=== PATIENT | female | born 1990 | race Caucasian/White ===

== ENCOUNTER 2016-07-24 18:15 | Emergency (ER) | payer OTHER ==
[~2016-07-24] VITALS: Ht 172.7 cm; Wt 72.5 kg
[~2016-07-24 18:15] MED LIST: A; ALAVERT10 M1 PO; ANAPROX DS550 M1 PO; BUTALB-APAP-CA1 EACH PO; BUTALBITAL-APA1 EACH PO; CARBAMAZEPINE200 MG PO; CIPRO500 MG PO; CLARITIN10 M3 PO; CLINDAMYCIN HC300 MG PO; COMPAZINE5 MG; CRANBERRY300 MG PO; DILAUDID2 MG PO; ENDOCET 5-3251 EACH PO; EXCEDRIN MIGRA1 EAC3 PO; FIORICET 50-301 EACH PO; FLEXERIL10 MG PO; FLOMAX0.4 MG PO; Flintstones PO; GEODON40 MG PO; HYDROCODON-ACE1 EAC7 PO; HYDROXYZINE HCL25 MG PO; IMITREX50 MG PO; KLONOPIN0.5 M1 PO; KYTRIL1 MG PO; LAMICTAL XR300 MG PO; LAMICTAL200 MG PO; LAMICTAL25 MG PO; LATUDA20 MG PO; LEVAQUIN250 MG PO; LORATADINE10 M2 PO; LYRICA75 MG PO; MINIPRESS2 MG PO; MIRALAX17 GM PO; MOBIC15 MG PO; MOTRIN600 MG PO; MOTRIN800 MG PO; Motrin PO; NAPROSYN500 MG PO; NAPROXEN500 MG PO; NEURONTIN300 MG PO; NEURONTIN400 MG PO; NORCO 5/3251 TABLET PO; PANTOPRAZOLE SO40 MG PO; PAXIL20 MG PO; PERCOCET 5/31 TABLET PO; PRAZOSIN HCL1 MG PO; PROTONIX40 MG PO; SAVELLA12.5 MG PO; SERTRALINE HCL100 MG PO; SYNTHROID125 MCG PO; TIZANIDINE HCL2 MG PO; TOPAMAX50 MG PO; TRAMADOL HCL50 MG PO; TRANSDERM-SCO1 PATCH TD; TUMS500 MG PO; ULTRAM50 MG PO; VICODIN 5-3001 EACH PO; VICODIN,LORT1 TABLET PO; VITAMIN D-32000 UNI2 PO; ZIPRASIDONE HCL60 MG PO; ZOLOFT25 MG PO; ~No Medications
[2016-07-24] MEDS ORDERED: SENNA8.6 MG PO (19:02)
[2016-07-24] MEDS ORDERED: AMMONIUM LACTA224 GM TP (19:03)
[2016-07-24] MEDS ORDERED: MULTIPLE VITAM1 EAC4 PO (19:04)
[2016-07-24] MEDS ORDERED: SAPHRIS10 MG SL (19:05)
[2016-07-24] MEDS ORDERED: LAMISIL AT12 GM TP (19:06)
[2016-07-24 19:16] LABS: HEMATOCRIT 38.5 % (36.0-46.0); MCH 30.3 PG (29.0-34.0); MCHC 35.3 G/DL (30.0-36.0); MCV 85.7 FL (83-99); PLATELET COUNT 316 K/uL (156-360); RBC DIS.WIDTH-CV 12.4 % (11.8-14.6); RBC DIS.WIDTH-SD 37.8 % (39-53); RED BLOOD COUNT 4.49 M/uL (3.80-5.20)
[2016-07-24 19:24] LABS: CHLORIDE 109 mEq/L (99-109); POTASSIUM 3.9 mEq/L (3.7-5.4); SODIUM 139 mEq/L (136-147)
[2016-07-24 19:26] LABS: GLUCOSE 104 mg/dL (70-99)
[2016-07-24 19:27] LABS: ANION GAP 8 MEQ/L (2-14)
[2016-07-24 19:30] LABS: GFR ESTIMATE (CALCULATED) > 59 mL/min/
[2016-07-24 19:31] LABS: UREA NITROGEN (BUN) 14 mg/dL (9-23)
[2016-07-24 19:38] LABS: TROP-I INTERPRETATION NEGATIVE; TROPONIN-I < 0.01 ng/mL (0.0-0.30)
[2016-07-24 20:51] VITALS: BP 109/67
== END 2016-07-24 20:53 | disposition home or self-care (01) ==
LOC: EME 18:15
PROVIDERS: Emergency Medicine
DX: R07.1 Chest pain on breathing (principal); J45.909 Unspecified asthma, uncomplicated; Z87.442 Personal history of urinary calculi; Z85.850 Personal history of malignant neoplasm of thyroid; Z87.891 Personal history of nicotine dependence
CPT/HCPCS: 71020; 80048; 84484; 85027; 85379; 93005; 99281; 99284

== ENCOUNTER 2016-09-13 22:50 | Emergency (ER) | payer OTHER ==
[~2016-09-13] VITALS: Ht 175.3 cm; Wt 98.1 kg
[~2016-09-13 22:50] MED LIST changes: +AMMONIUM LACTA224 GM TP; +LAMISIL AT12 GM TP; +MULTIPLE VITAM1 EAC4 PO; +SAPHRIS10 MG SL; +SENNA8.6 MG PO
[2016-09-13 23:50] LABS: HEMATOCRIT 41.8 % (36.0-46.0); MCH 29.9 PG (29.0-34.0); MCHC 33.7 G/DL (30.0-36.0); MCV 88.7 FL (83-99); MEAN PLAT.VOLUME 8.9 uM^3 (9.5-12.4); PLATELET COUNT 333 K/uL (156-360); RBC DIS.WIDTH-CV 12.2 % (11.8-14.6); RBC DIS.WIDTH-SD 39.4 % (39-53); RED BLOOD COUNT 4.71 M/uL (3.80-5.20)
[2016-09-13 23:52] LABS: WHITE BLOOD COUNT 6.8 K/uL (4.1-10.2)
[2016-09-14] LABS: CHLORIDE 107 mEq/L (99-109); POTASSIUM 3.9 mEq/L (3.7-5.4); SODIUM 141 mEq/L (136-147)
[2016-09-14 00:02] LABS: GLUCOSE 103 mg/dL (70-99)
[2016-09-14 00:03] LABS: ANION GAP 12 MEQ/L (2-14)
[2016-09-14 00:06] LABS: GFR ESTIMATE (CALCULATED) > 59 mL/min/; UREA NITROGEN (BUN) 12 mg/dL (9-23)
[2016-09-14 00:12] LABS: TROP-I INTERPRETATION NEGATIVE; TROPONIN-I < 0.01 ng/mL (0.0-0.30)
[2016-09-14 01:11] LABS: D-DIMER ELISA 0.31 mg/L FEU (< 0.57)
[2016-09-14 01:31] LABS: QUANTITATIVE HCG < 4.0 MIU/ML
[2016-09-14 02:05] LABS: ADD MIUA? YES; BILIRUBIN NEGATIVE; BLOOD NEGATIVE; COLOR YELLOW ((YELLOW)); GLUCOSE (STRIP) NEGATIVE; KETONES NEGATIVE; LEUKOCYTES NEGATIVE; NITRITE NEGATIVE; PROTEIN (STRIP) 30; SPECIFIC GRAVITY 1.025 (1.000-1.030); UROBILINOGEN 0.2 MG/DL (0.2-1.0)
[2016-09-14] MEDS ORDERED: TRAMADOL HCL50 MG PO (02:10)
[2016-09-14] MEDS ORDERED: PEPCID20 MG PO (02:11)
[2016-09-14 02:18] LABS: BACTERIA RARE /HPF; EPITHELIAL CELLS 1+ /HPF; MUCUS 2+ /LPF; RED BLOOD CELLS 0-5 /HPF (0-5); UCUL ADDED? NO; WHITE BLOOD CELLS 0-5 /HPF (0-5)
[2016-09-14 02:19] VITALS: BP 123/81
== END 2016-09-14 02:21 | disposition home or self-care (01) ==
LOC: EME 22:50
PROVIDERS: Emergency Medicine
DX: R07.9 Chest pain, unspecified (principal); M25.512 Pain in left shoulder; Z87.891 Personal history of nicotine dependence
CPT/HCPCS: 71020; 74177; 80048; 81003; 84484; 84702; 85027; 85379; 93005; 99281; 99284; J1885

== ENCOUNTER 2017-01-04 20:13 | Emergency (ER) | payer OTHER ==
[~2017-01-04] VITALS: Ht 172.7 cm; Wt 100.4 kg
[~2017-01-04 20:13] MED LIST changes: +PEPCID20 MG PO
[2017-01-04 20:36] VITALS: BP 121/70
== END 2017-01-04 22:56 | disposition home or self-care (01) ==
LOC: EME 20:13
PROC: 0HBRXZZ Excision of Toe Nail, External Approach (ICD-10-PCS; principal; 2017-01-04)
DX: L60.0 Ingrowing nail (principal); L03.031 Cellulitis of right toe; E89.0 Postprocedural hypothyroidism; Z87.891 Personal history of nicotine dependence
CPT/HCPCS: 99281; 99284; S0020

== ENCOUNTER 2017-01-24 11:04 | Emergency (ER) | payer OTHER ==
[~2017-01-24] VITALS: Ht 172.7 cm; Wt 101.6 kg
[2017-01-24 12:20] VITALS: BP 115/87
[2017-01-24] MEDS ORDERED: ZITHROMAX500 MG PO (12:35)
== END 2017-01-24 12:30 | disposition home or self-care (01) ==
LOC: EME 11:04
DX: J02.9 Acute pharyngitis, unspecified (principal)
CPT/HCPCS: 87651 90; 99281; 99284

== ENCOUNTER 2017-02-08 09:37 | Emergency (ER) | payer OTHER ==
[~2017-02-08] VITALS: Ht 172.7 cm; Wt 99.9 kg
[~2017-02-08 09:37] MED LIST changes: +ZITHROMAX500 MG PO
[2017-02-08 10:57] LABS: EOSINOPHIL (%) 0.4 % (0-5); HEMATOCRIT 39.4 % (36.0-46.0); IMMATURE GRANULOCYTE (%) 0.4 % (0.0-0.7); LYMPHOCYTE COUNT 1.1 K/uL (1.0-2.8); MCH 30.1 PG (29.0-34.0); MCV 88.5 FL (83-99); MEAN PLAT.VOLUME 8.9 uM^3 (9.5-12.4); MONOCYTE (%) 5.3 % (3-12); MONOCYTE COUNT 0.6 K/uL (0-0.8); NEUTROPHIL (%) 83.4 % (45-76); PLATELET COUNT 304 K/uL (156-360); RBC DIS.WIDTH-CV 11.9 % (11.8-14.6); RBC DIS.WIDTH-SD 38.1 % (39-53); RED BLOOD COUNT 4.45 M/uL (3.80-5.20); WHITE BLOOD COUNT 10.8 K/uL (4.1-10.2)
[2017-02-08 12:10] LABS: CHLORIDE 107 mEq/L (99-109); POTASSIUM 3.8 mEq/L (3.7-5.4); SODIUM 140 mEq/L (136-147)
[2017-02-08 12:12] LABS: GLUCOSE 102 mg/dL (70-99)
[2017-02-08 12:13] LABS: ANION GAP 11 MEQ/L (2-14)
[2017-02-08 12:14] LABS: TOTAL BILIRUBIN 0.4 mg/dL (0.0-1.0)
[2017-02-08 12:15] LABS: ALKALINE PHOSPHATASE 81 IU/L (3-129)
[2017-02-08 12:16] LABS: GFR ESTIMATE (CALCULATED) > 59 mL/min/
[2017-02-08 12:17] LABS: UREA NITROGEN (BUN) 11 mg/dL (9-23)
[2017-02-08 12:19] LABS: LIPASE 33 U/L (1.0-51.0)
[2017-02-08] MEDS ORDERED: BENTYL20 MG PO (13:28)
[2017-02-08 13:46] VITALS: BP 104/66
== END 2017-02-08 13:49 | disposition home or self-care (01) ==
LOC: EME 09:37
PROVIDERS: Emergency Medicine
DX: R10.9 Unspecified abdominal pain (principal); K58.0 Irritable bowel syndrome with diarrhea; M79.7 Fibromyalgia; J45.909 Unspecified asthma, uncomplicated; Z87.442 Personal history of urinary calculi; Z85.850 Personal history of malignant neoplasm of thyroid
CPT/HCPCS: 80053; 83690; 85025; 99281; 99285; J2270; J7030

== ENCOUNTER 2017-06-21 01:29 | Emergency (ER) | payer OTHER ==
[~2017-06-21] VITALS: Ht 172.7 cm; Wt 91.5 kg
[~2017-06-21 01:29] MED LIST changes: +BENTYL20 MG PO
[2017-06-21 02:34] LABS: HEMATOCRIT 47.3 % (36.0-46.0); HEMOGLOBIN 16.4 G/DL (11.9-15.5); MCH 30.1 PG (29.0-34.0); MCHC 34.7 G/DL (30.0-36.0); MCV 86.8 FL (83-99); PLATELET COUNT 344 K/uL (156-360); RBC DIS.WIDTH-CV 11.9 % (11.8-14.6); RBC DIS.WIDTH-SD 38.3 % (39-53); RED BLOOD COUNT 5.45 M/uL (3.80-5.20); WHITE BLOOD COUNT 15.3 K/uL (4.1-10.2)
[2017-06-21 02:51] LABS: ALBUMIN 4.7 g/dL (3.2-4.8); CHLORIDE 110 mEq/L (99-109); POTASSIUM 3.9 mEq/L (3.7-5.4); SODIUM 142 mEq/L (136-147)
[2017-06-21 02:53] LABS: GLUCOSE 154 mg/dL (70-99); TOTAL PROTEIN 8.3 g/dL (6.4-8.3)
[2017-06-21 02:55] LABS: TOTAL BILIRUBIN 0.6 mg/dL (0.0-1.0)
[2017-06-21 02:57] LABS: ALKALINE PHOSPHATASE 89 IU/L (3-129); GFR ESTIMATE (CALCULATED) > 59 mL/min/
[2017-06-21 02:58] LABS: UREA NITROGEN (BUN) 14 mg/dL (9-23)
[2017-06-21 02:59] LABS: AST (GOT) 21 IU/L (2-34)
[2017-06-21 03:00] LABS: ALT (GPT) 15 IU/L (3-49)
[2017-06-21 03:05] LABS: QUANTITATIVE HCG < 4.0 MIU/ML
[2017-06-21 05:40] LABS: APPEARANCE SL.HAZY ((CLEAR)); BILIRUBIN NEGATIVE; BLOOD NEGATIVE; COLOR AMBER ((YELLOW)); GLUCOSE (STRIP) NEGATIVE; KETONES 20; LEUKOCYTES NEGATIVE; NITRITE NEGATIVE; PROTEIN (STRIP) 100; SPECIFIC GRAVITY 1.028 (1.000-1.030); UROBILINOGEN 0.2 MG/DL (0.2-1.0)
[2017-06-21 06:12] VITALS: BP 100/70
[2017-06-21 06:37] LABS: RED BLOOD CELLS NONE SEEN /HPF (0-5)
[2017-06-21 06:38] LABS: EPITHELIAL CELLS 1+ /HPF; MUCUS 3+ /LPF; WHITE BLOOD CELLS 0-5 /HPF (0-5)
[2017-06-21 06:39] LABS: BACTERIA RARE /HPF; UCUL ADDED? NO
== END 2017-06-21 06:12 | disposition home or self-care (01) ==
LOC: EME 01:29
DX: A08.4 Viral intestinal infection, unspecified (principal); E86.0 Dehydration; Z87.442 Personal history of urinary calculi; Z90.710 Acquired absence of both cervix and uterus; Z90.49 Acquired absence of other specified parts of digestive tract; Z85.850 Personal history of malignant neoplasm of thyroid
CPT/HCPCS: 80053; 81003; 84702; 85027; 93005; 99281; 99285; J1626; J7030

== ENCOUNTER 2017-07-16 11:25 | Emergency (ER) | payer OTHER ==
[~2017-07-16] VITALS: Ht 172.7 cm; Wt 96.9 kg
[2017-07-16 14:03] LABS: BASOPHIL (%) 0.7 % (0-1); EOSINOPHIL (%) 1.5 % (0-5); EOSINOPHIL COUNT 0.1 K/uL (0-0.3); HEMATOCRIT 39.9 % (36.0-46.0); HEMOGLOBIN 13.8 G/DL (11.9-15.5); IMMATURE GRANULOCYTE (%) 0.2 % (0.0-0.7); LYMPHOCYTE (%) 23.7 % (15-42); LYMPHOCYTE COUNT 1.3 K/uL (1.0-2.8); MCH 30.4 PG (29.0-34.0); MCHC 34.6 G/DL (30.0-36.0); MCV 87.9 FL (83-99); MONOCYTE (%) 5.6 % (3-12); MONOCYTE COUNT 0.3 K/uL (0-0.8); NEUTROPHIL (%) 68.3 % (45-76); NEUTROPHIL COUNT 3.7 K/uL (1.8-6.4); PLATELET COUNT 301 K/uL (156-360); RBC DIS.WIDTH-CV 12.6 % (11.8-14.6); RBC DIS.WIDTH-SD 40.6 % (39-53); RED BLOOD COUNT 4.54 M/uL (3.80-5.20); WHITE BLOOD COUNT 5.4 K/uL (4.1-10.2)
[2017-07-16 14:12] LABS: ALBUMIN 4.2 g/dL (3.2-4.8)
[2017-07-16 14:13] LABS: CHLORIDE 109 mEq/L (99-109); POTASSIUM 3.5 mEq/L (3.7-5.4); SODIUM 139 mEq/L (136-147)
[2017-07-16 14:15] LABS: GLUCOSE 92 mg/dL (70-99); TOTAL PROTEIN 7.1 g/dL (6.4-8.3)
[2017-07-16 14:17] LABS: TOTAL BILIRUBIN 0.4 mg/dL (0.0-1.0)
[2017-07-16 14:18] LABS: ALKALINE PHOSPHATASE 78 IU/L (3-129)
[2017-07-16 14:19] LABS: CREATININE 0.8 mg/dL (0.6-1.3); GFR ESTIMATE (CALCULATED) > 59 mL/min/
[2017-07-16 14:20] LABS: AST (GOT) 18 IU/L (2-34); UREA NITROGEN (BUN) 8 mg/dL (9-23)
[2017-07-16 14:22] LABS: ALT (GPT) 17 IU/L (3-49)
[2017-07-16 15:21] LABS: APPEARANCE SL.HAZY ((CLEAR)); BILIRUBIN NEGATIVE; BLOOD NEGATIVE; COLOR YELLOW ((YELLOW)); GLUCOSE (STRIP) NEGATIVE; KETONES 5; LEUKOCYTES NEGATIVE; NITRITE NEGATIVE; PROTEIN (STRIP) NEGATIVE; SPECIFIC GRAVITY 1.023 (1.000-1.030)
[2017-07-16 15:43] LABS: BACTERIA RARE /HPF; EPITHELIAL CELLS RARE /HPF; MUCUS 2+ /LPF; RED BLOOD CELLS 0-5 /HPF (0-5); UCUL ADDED? NO; WHITE BLOOD CELLS 0-5 /HPF (0-5)
[2017-07-16 16:39] VITALS: BP 122/72
[2017-07-18 10:36] LABS: TREPONEMA ANTIBODY POSITIVE (NEGATIVE)
[2017-07-19 17:15] LABS: RPR SCREEN Reactive (Nonreactive); RPR TITER Reactive 1:32 (())
[2017-07-19 17:57] LABS: TREPONEMA PALLIDUM PART AGGL Reactive (Nonreactive)
== END 2017-07-16 16:39 | disposition home or self-care (01) ==
LOC: EME 11:25
PROVIDERS: Emergency Medicine
DX: T76.21XA Adult sexual abuse, suspected, initial encounter (principal); M79.7 Fibromyalgia; J45.909 Unspecified asthma, uncomplicated; K21.9 Gastro-esophageal reflux disease without esophagitis; F41.9 Anxiety disorder, unspecified; F32.9 Major depressive disorder, single episode, unspecified; Z85.850 Personal history of malignant neoplasm of thyroid; Z87.442 Personal history of urinary calculi; Z90.49 Acquired absence of other specified parts of digestive tract; Z88.5 Allergy status to narcotic agent; Z88.2 Allergy status to sulfonamides; Z88.0 Allergy status to penicillin; Z88.1 Allergy status to other antibiotic agents; Z88.6 Allergy status to analgesic agent; Z88.8 Allergy status to other drugs, medicaments and biological substances
CPT/HCPCS: 80053; 81003; 81025; 85025; 86592 90; 86593 90; 86780; 86780 90; 90839; 99281; 99284; G0480

== ENCOUNTER 2017-08-11 14:33 | Day surgery (SDC) | payer OTHER | END 2017-08-11 16:50 | disposition home or self-care (01) | LOC: CATH 14:33 | DX: G97.1 Other reaction to spinal and lumbar puncture (principal); M54.5 Low back pain; Z88.0 Allergy status to penicillin; Z88.2 Allergy status to sulfonamides; Z88.1 Allergy status to other antibiotic agents ==

== ENCOUNTER 2018-02-11 17:33 | Emergency (ER) | payer OTHER ==
[~2018-02-11] VITALS: Ht 172.7 cm; Wt 102.3 kg
[2018-02-11 18:22] LABS: HEMATOCRIT 42.1 % (36.0-46.0); HEMOGLOBIN 14.7 G/DL (11.9-15.5); MCH 30.8 PG (29.0-34.0); MCHC 34.9 G/DL (30.0-36.0); MCV 88.1 FL (83-99); PLATELET COUNT 349 K/uL (156-360); RBC DIS.WIDTH-CV 11.8 % (11.8-14.6); RED BLOOD COUNT 4.78 M/uL (3.80-5.20); WHITE BLOOD COUNT 5.3 K/uL (4.1-10.2)
[2018-02-11 18:25] LABS: APPEARANCE SL.HAZY ((CLEAR)); BILIRUBIN NEGATIVE; BLOOD NEGATIVE; COLOR YELLOW ((YELLOW)); GLUCOSE (STRIP) NEGATIVE; KETONES NEGATIVE; LEUKOCYTES NEGATIVE; NITRITE NEGATIVE; PROTEIN (STRIP) NEGATIVE; UROBILINOGEN 0.2 MG/DL (0.2-1.0)
[2018-02-11 18:30] LABS: BACTERIA RARE /HPF; EPITHELIAL CELLS 2+ /HPF; HYALINE CASTS 0-5 /LPF; MUCUS 2+ /LPF; RED BLOOD CELLS 0-5 /HPF (0-5); WHITE BLOOD CELLS 0-5 /HPF (0-5)
[2018-02-11 18:31] LABS: CHLORIDE 108 mEq/L (99-109); POTASSIUM 3.9 mEq/L (3.7-5.4); SODIUM 139 mEq/L (136-147)
[2018-02-11 18:32] LABS: GLUCOSE 99 mg/dL (70-99)
[2018-02-11 18:36] LABS: CREATININE 0.8 mg/dL (0.6-1.3); GFR ESTIMATE (CALCULATED) > 59 mL/min/
[2018-02-11 18:37] LABS: UREA NITROGEN (BUN) 11 mg/dL (9-23)
[2018-02-11] MEDS ORDERED: SCOPOLAMINE1 EACH TD (21:51)
[2018-02-11] MEDS ORDERED: BENTYL20 MG PO (21:51)
[2018-02-11 22:02] VITALS: BP 120/59
== END 2018-02-11 22:05 | disposition home or self-care (01) ==
LOC: EME 17:33 → RME 17:33
PROVIDERS: Physician Assistant
DX: R10.31 Right lower quadrant pain (principal); R11.0 Nausea; N20.0 Calculus of kidney; Z90.49 Acquired absence of other specified parts of digestive tract; Z90.710 Acquired absence of both cervix and uterus; Z87.442 Personal history of urinary calculi; Z85.850 Personal history of malignant neoplasm of thyroid; Z88.0 Allergy status to penicillin; Z88.2 Allergy status to sulfonamides
CPT/HCPCS: 74177; 80048; 81003; 85027; 99281; 99284; J2270; J7030